=== PATIENT | female | born 1940 | race Caucasian/White ===

== ENCOUNTER 2021-09-07 13:48 | Inpatient (IN) | payer MEDICARE ==
[~2021-09-07] VITALS: Ht 167.6 cm; Wt 59.4 kg
[~2021-09-07 13:48] MED LIST: ALBUTEROL0.63 MG/3 INH; AMLODIPINE BES2.5 MG PO; ASPIR-LOW81 MG PO; ATIVAN1 MG PO; BUTALB-ACETAMI1 EAC2 PO; CRANBERRY PLUS1 EAC1 PO; CRANBERRY500 M2 PO; CRESTOR 10 MG T10 MG PO; DITROPAN XL5 MG PO; FEOSOL325 MG PO; IRON325 M1 PO; K-DUR TAB 10 M10 MEQ PO; KLONOPIN TAB 00.5 MG PO; LIPITOR TAB 1010 MG PO; METHADONE HCL T10 MG PO; PANTOPRAZOLE SO40 MG PO; PERCOCET 10-321 EACH PO; PERCOCET 5-3251 EACH PO; PERCOCET 5/325 T1 EA PO; SEROQUEL50 MG PO; SERTRALINE HCL100 MG PO; STOOL SOFTENER100 M1 PO; SULFAMETHOXAZO1 EAC1 PO; SYNTHROID 50 M50 MCG PO; THERAGRAN M TAB1 EA PO; ULTRACET TABLE1 EACH PO; VANCOCIN 125 M125 MG PO; VITAMIN B-121000 MCG PO; VITAMIN B-125000 MC1 PO; ZANTAC150 MG PO; ZOFRAN ODT 4 MG4 MG PO; ZOFRAN4 MG PO
[2021-09-07 15:12] LABS: HEMOGLOBIN 12.2 gm/dl (12.3-15.3); RED BLOOD COUNT 3.76 M/UL (4.00-5.10)
[2021-09-07 15:57] LABS: BUN/CREATININE RATIO 16 (0-10)
[2021-09-08 06:31] LABS: WHITE BLOOD COUNT 20.2 K/UL (4.5-11.0)
[2021-09-08 06:40] LABS: HEMOGLOBIN 9.2 gm/dl (12.3-15.3); RED BLOOD COUNT 2.97 M/UL (4.00-5.10)
[2021-09-09 07:25] LABS: HEMOGLOBIN 9.2 gm/dl (12.3-15.3); RED BLOOD COUNT 2.88 M/UL (4.00-5.10); WHITE BLOOD COUNT 15.3 K/UL (4.5-11.0)
[2021-09-10 07:00] LABS: HEMOGLOBIN 9.3 gm/dl (12.3-15.3); RED BLOOD COUNT 2.93 M/UL (4.00-5.10)
[2021-09-10 07:22] LABS: WHITE BLOOD COUNT 9.1 K/UL (4.5-11.0)
[2021-09-11 05:04] LABS: HEMOGLOBIN 9.4 gm/dl (12.3-15.3); RED BLOOD COUNT 2.98 M/UL (4.00-5.10); WHITE BLOOD COUNT 8.5 K/UL (4.5-11.0)
[2021-09-13 06:29] LABS: HEMOGLOBIN 9.7 gm/dl (12.3-15.3); RED BLOOD COUNT 3.06 M/UL (4.00-5.10); WHITE BLOOD COUNT 7.7 K/UL (4.5-11.0)
[2021-09-13] MEDS ORDERED: LOPRESSOR 25 MG25 MG PO (09:47)
== END 2021-09-13 13:30 | disposition home health service (06) | DRG 871 ==
LOC: ER1 13:48 → M/S 19:15 → CDU 19:15 → M/S 09-08 00:07
PROVIDERS: Physician Assistant; ADMIT Internal Medicine Infectious Disease
DX: A41.9 Sepsis, unspecified organism (principal); J96.21 Acute and chronic respiratory failure with hypoxia; J69.0 Pneumonitis due to inhalation of food and vomit; J18.9 Pneumonia, unspecified organism; N17.0 Acute kidney failure with tubular necrosis; J44.0 Chronic obstructive pulmonary disease with (acute) lower respiratory infection; Z20.822 Contact with and (suspected) exposure to COVID-19; R65.20 Severe sepsis without septic shock; F03.90 Unspecified dementia, unspecified severity, without behavioral disturbance, psychotic disturbance, mood disturbance, and anxiety; G89.29 Other chronic pain; I12.9 Hypertensive chronic kidney disease with stage 1 through stage 4 chronic kidney disease, or unspecified chronic kidney disease; N18.9 Chronic kidney disease, unspecified; R53.81 Other malaise; Z96.611 Presence of right artificial shoulder joint; E03.9 Hypothyroidism, unspecified; Z86.73 Personal history of transient ischemic attack (TIA), and cerebral infarction without residual deficits; Z99.81 Dependence on supplemental oxygen; Z90.49 Acquired absence of other specified parts of digestive tract; Z90.710 Acquired absence of both cervix and uterus; Z98.890 Other specified postprocedural states; Z87.891 Personal history of nicotine dependence; Z83.3 Family history of diabetes mellitus; Z84.1 Family history of disorders of kidney and ureter; Z88.8 Allergy status to other drugs, medicaments and biological substances; Z79.82 Long term (current) use of aspirin; Z79.899 Other long term (current) drug therapy
CPT/HCPCS: 36415; 71045; 80048; 80053; 81001; 82550; 82553; 82607; 82652; 83605; 83690; 83735; 83874; 83880; 84484; 85025; 85027; 86140; 87040; 92610; 93005; 94640; 94664; 94760; 96374; 96375; 97110; 97110-GP-CQ; 97116-GP-CQ; 97161; 97166; 97530; 97530-GP-CQ; 99285; J0696; J1335; J1650; J2270; J2405; Q9967; U0002

== ENCOUNTER 2022-04-08 23:53 | Emergency (ER) | payer MEDICARE ==
[~2022-04-08 23:53] MED LIST changes: +LOPRESSOR 25 MG25 MG PO
[2022-04-09 00:44] LABS: HEMOGLOBIN 11.4 gm/dl (12.3-15.3); RED BLOOD COUNT 3.57 M/UL (4.00-5.10); WHITE BLOOD COUNT 5.7 K/UL (4.5-11.0)
== END 2022-04-09 03:48 | disposition home or self-care (01) ==
LOC: ER1 23:53
PROVIDERS: Student in an Organized Health Care Education/Training Program
DX: M25.551 Pain in right hip (principal); I10 Essential (primary) hypertension; Z86.73 Personal history of transient ischemic attack (TIA), and cerebral infarction without residual deficits; W19.XXXA Unspecified fall, initial encounter
CPT/HCPCS: 70450; 72125; 73502; 73700; 80053; 85025; 86850; 86900; 86901; 99284

== ENCOUNTER 2022-04-26 16:52 | Inpatient (IN) | payer MEDICARE ==
[~2022-04-26] VITALS: Ht 167.6 cm; Wt 52.2 kg
[2022-04-26 18:06] LABS: RED BLOOD COUNT 3.53 M/UL (4.00-5.10); WHITE BLOOD COUNT 18.8 K/UL (4.5-11.0)
[2022-04-26 18:23] LABS: BORDETELLA PARAPERTUSSIS Not Detected (Not Detectd); BORDETELLA PERTUSSIS Not Detected (Not Detectd); CHLAMYDIA PNEUMONIAE Not Detected (Not Detectd); CORONAVIRUS HKU1 Not Detected (Not Detectd); CORONAVIRUS NL63 Not Detected (Not Detectd); CORONAVIRUS OC43 Not Detected (Not Detectd); CORONOAVIRUS 229E Not Detected (Not Detectd); HUMAN METAPNEUMOVIRUS Not Detected (Not Detectd); HUMAN RHINOVIRUS/ENTEROVIRUS Not Detected (Not Detectd); INFLUENZA A Not Detected (Not Detectd); INFLUENZA B Not Detected (Not Detectd); MYCOPLASMA PNEUMONIAE Not Detected (Not Detectd); PARAINFLUENZA VIRUS 1 Not Detected (Not Detectd); PARAINFLUENZA VIRUS 2 Not Detected (Not Detectd); PARAINFLUENZA VIRUS 3 Not Detected (Not Detectd); PARAINFLUENZA VIRUS 4 Not Detected (Not Detectd); RESPIRATORY SYNCYTIAL VIRUS Not Detected (Not Detectd)
[2022-04-26 19:27] LABS: SARS-CoV-2 NOT DETECTED (Not Detectd)
[2022-04-27 06:33] LABS: HEMOGLOBIN 9.4 gm/dl (12.3-15.3)
[2022-04-27 06:35] LABS: RED BLOOD COUNT 3.04 M/UL (4.00-5.10); WHITE BLOOD COUNT 12.1 K/UL (4.5-11.0)
[2022-04-27] MEDS ORDERED: METOPROLOL TART25 MG PO (10:41)
[2022-04-27] MEDS ORDERED: PAROXETINE HCL10 MG PO (10:41)
[2022-04-28 06:40] LABS: HEMOGLOBIN 9.1 gm/dl (12.3-15.3); RED BLOOD COUNT 2.98 M/UL (4.00-5.10); WHITE BLOOD COUNT 15.1 K/UL (4.5-11.0)
[2022-04-29 10:52] LABS: HEMOGLOBIN 9.9 gm/dl (12.3-15.3); RED BLOOD COUNT 3.16 M/UL (4.00-5.10)
[2022-04-29 10:56] LABS: WHITE BLOOD COUNT 5.7 K/UL (4.5-11.0)
[2022-04-30 06:25] LABS: HEMOGLOBIN 9.5 gm/dl (12.3-15.3); RED BLOOD COUNT 3.06 M/UL (4.00-5.10)
[2022-05-01 07:00] LABS: HEMOGLOBIN 9.1 gm/dl (12.3-15.3); RED BLOOD COUNT 2.92 M/UL (4.00-5.10); WHITE BLOOD COUNT 5.3 K/UL (4.5-11.0)
[2022-05-02 06:47] LABS: RED BLOOD COUNT 2.9 M/UL (4.00-5.10)
[2022-05-03 02:24] LABS: HEMOGLOBIN 8.9 gm/dl (12.3-15.3); RED BLOOD COUNT 2.84 M/UL (4.00-5.10)
[2022-05-03 02:25] LABS: WHITE BLOOD COUNT 6.9 K/UL (4.5-11.0)
[2022-05-03 02:43] LABS: BUN/CREATININE RATIO 16 (0-10)
[2022-05-04 02:48] LABS: HEMOGLOBIN 8.7 gm/dl (12.3-15.3); RED BLOOD COUNT 2.83 M/UL (4.00-5.10); WHITE BLOOD COUNT 5.6 K/UL (4.5-11.0)
[2022-05-04] MEDS ORDERED: IPRAT-ALBUT 0.5-3 ML NEB (12:39)
[2022-05-04] MEDS ORDERED: BUDESONIDE0.5 MG/2 M NEB (12:39)
[2022-05-04] MEDS ORDERED: ASPIRIN EC81 MG PO (12:39)
[2022-05-04] MEDS ORDERED: CEFDINIR300 MG PO (12:39)
[2022-05-04] MEDS ORDERED: LEVOTHYROXINE50 MCG PO (12:39)
== END 2022-05-04 18:12 | DRG 871 ==
LOC: ER1 16:52 → MED SURG 4 20:13 → CDU 20:13 → MED SURG 4 20:13
PROVIDERS: Internal Medicine; Preventive Medicine Occupational Medicine; ADMIT Internal Medicine
DX: A41.9 Sepsis, unspecified organism (principal); J18.9 Pneumonia, unspecified organism; J44.0 Chronic obstructive pulmonary disease with (acute) lower respiratory infection; Z20.822 Contact with and (suspected) exposure to COVID-19; E44.0 Moderate protein-calorie malnutrition; Z68.1 Body mass index [BMI] 19.9 or less, adult; R65.20 Severe sepsis without septic shock; E86.0 Dehydration; I10 Essential (primary) hypertension; R53.81 Other malaise; E03.9 Hypothyroidism, unspecified; F03.90 Unspecified dementia, unspecified severity, without behavioral disturbance, psychotic disturbance, mood disturbance, and anxiety; Z86.73 Personal history of transient ischemic attack (TIA), and cerebral infarction without residual deficits; Z87.19 Personal history of other diseases of the digestive system; Z79.01 Long term (current) use of anticoagulants; Z79.82 Long term (current) use of aspirin; Z99.81 Dependence on supplemental oxygen; Z90.49 Acquired absence of other specified parts of digestive tract; Z90.710 Acquired absence of both cervix and uterus; Z98.890 Other specified postprocedural states; Z88.1 Allergy status to other antibiotic agents; Z80.9 Family history of malignant neoplasm, unspecified; Z83.3 Family history of diabetes mellitus; Z87.891 Personal history of nicotine dependence
CPT/HCPCS: 36415; 36600; 71045; 71250; 80048; 80053; 81001; 82550; 82553; 82803; 83605; 83690; 83735; 83880; 84100; 84484; 85025; 85652; 86140; 87040; 87086; 87633; 93005; 94640; 94664; 94760; 96365; 96366; 96375; 96376; 97110; 97116; 97116-GP-CQ; 97161; 97167; 97530-GP-CQ; 97535; 99285; G0378; J0456; J0696; J1650; J2930; J7030

== ENCOUNTER 2022-06-14 12:56 | Observation (INO) | payer MEDICARE ==
[~2022-06-14] VITALS: Ht 160 cm; Wt 49.9 kg
[~2022-06-14 12:56] MED LIST changes: +ASPIRIN EC81 MG PO; +BUDESONIDE0.5 MG/2 M NEB; +CEFDINIR300 MG PO; +IPRAT-ALBUT 0.5-3 ML NEB; +LEVOTHYROXINE50 MCG PO; +METOPROLOL TART25 MG PO; +PAROXETINE HCL10 MG PO
[2022-06-14 13:57] LABS: RED BLOOD COUNT 3.18 M/UL (4.00-5.10); WHITE BLOOD COUNT 5.7 K/UL (4.5-11.0)
[2022-06-14 15:11] LABS: BUN/CREATININE RATIO 19 (0-10)
[2022-06-15 02:51] LABS: RED BLOOD COUNT 3.22 M/UL (4.00-5.10); WHITE BLOOD COUNT 6.5 K/UL (4.5-11.0)
[2022-06-15] MEDS ORDERED: AMLODIPINE BES2.5 MG PO (16:28)
[2022-06-15] MEDS ORDERED: ASPIRIN EC81 MG PO (16:28)
[2022-06-15] MEDS ORDERED: OXYBUTYNIN CHLOR5 MG PO (16:29)
[2022-06-15] MEDS ORDERED: MELATONIN10 M2 PO (16:30)
[2022-06-15] MEDS ORDERED: LORAZEPAM0.5 MG PO (16:30)
[2022-06-15] MEDS ORDERED: VITAMIN B-121000 MCG PO (16:31)
[2022-06-16] MEDS ORDERED: CLOPIDOGREL75 MG PO (09:48)
[2022-06-16] MEDS ORDERED: LIPITOR20 MG PO (09:48)
[2022-06-16] MEDS ORDERED: SENOKOT-S TABL1 EACH PO (09:50)
== END 2022-06-16 13:02 | disposition home or self-care (01) ==
LOC: ER1 12:56 → M/S 20:38 → CDU 20:38 → M/S 20:38
PROVIDERS: Emergency Medicine; ADMIT Internal Medicine
DX: R55 Syncope and collapse (principal); Z86.73 Personal history of transient ischemic attack (TIA), and cerebral infarction without residual deficits; F03.90 Unspecified dementia, unspecified severity, without behavioral disturbance, psychotic disturbance, mood disturbance, and anxiety; G89.29 Other chronic pain; M54.9 Dorsalgia, unspecified; E78.5 Hyperlipidemia, unspecified; E03.9 Hypothyroidism, unspecified; I11.0 Hypertensive heart disease with heart failure; I50.9 Heart failure, unspecified; J44.9 Chronic obstructive pulmonary disease, unspecified; J96.11 Chronic respiratory failure with hypoxia; Z20.822 Contact with and (suspected) exposure to COVID-19; Z99.81 Dependence on supplemental oxygen; Z87.891 Personal history of nicotine dependence; Z79.82 Long term (current) use of aspirin; Z79.899 Other long term (current) drug therapy; Z88.0 Allergy status to penicillin
CPT/HCPCS: ECHO; 70450; 70496; 70498; 71045; 73030; 80053; 80061; 82140; 82550; 82553; 83036; 83605; 83735; 83880; 84439; 84443; 84484; 85025; 85027; 87040; 92610; 93005; 93306; 93880; 97116-GP-CQ; 97161; 97166; 97530; 97530-GP-CQ; 99285; G0378; Q9967; U0002